=== PATIENT | female | born 1945 | race Caucasian/White ===

== ENCOUNTER 2020-06-06 06:38 | Emergency (ER) | payer MEDICARE, OTHER ==
[~2020-06-06] VITALS: Ht 157.5 cm; Wt 74.8 kg
[~2020-06-06 06:38] MED LIST: FAMO20 PO; K-Dur20 MEQ PO; LEVSOD50 PO; PANT40 PO; PRAV20; SYNTHROID25 MCG PO; TRAM50 PO; Zofran4 MG PO
[2020-06-06] MEDS ORDERED: Lisinopril10 MG (06:47)
[2020-06-06] MEDS ORDERED: OMEP20ER (06:48)
[2020-06-06 07:29] LABS: Source, Urine Voided
[2020-06-06 07:39] LABS: Appearance, Urine Clear (Clear); Bilirubin, Urine Neg (Neg); Blood, Urine 2+ (Neg); Color, Urine Yellow (P-Yellow); Glucose Qualitative, Urine Neg (Neg); Ketones, Urine Neg (Neg); Leukocyte Esterase, Urine 1+ (Neg); Nitrite, Urine Neg (Neg); Protein, Urine Neg (Neg); Urobilinogen, Urine NORM (Normal)
[2020-06-06 07:40] LABS: BASOPHILS ABSOLUTE AUTO 0.03 K/mm3 (0.00-0.23); BASOPHILS PERCENT AUTO 1 % (0-2); EOSINOPHILS ABSOLUTE AUTO 0.07 K/mm3 (0.00-0.68); EOSINOPHILS PERCENT AUTO 1 % (0-6); Hematocrit 27.4 % (33.0-51.0); Hemoglobin 8.1 g/dL (11.5-16.0); IMMATURE GRAN ABSOLUTE AUTO 0.01 K/mm3 (0.00-0.10); IMMATURE GRAN PERCENT AUTO 0 % (0-1); LYMPHOCYTES ABSOLUTE AUTO 1.47 K/mm3 (0.84-5.20); LYMPHOCYTES PERCENT AUTO 29 % (21-46); MONOCYTES ABSOLUTE AUTO 0.47 K/mm3 (0.16-1.47); MONOCYTES PERCENT AUTO 9 % (4-13); Mean Corpuscular HGB 20.6 pg (26.0-34.0); Mean Corpuscular HGB Conc 29.6 g/dL (31.5-36.5); Mean Corpuscular Volume 70 fL (80-100); Mean Platelet Volume 9.6 fL (9.1-12.4); NEUTROPHILS PERCENT AUTO 60 % (41-73); Platelet Count 374 K/mm3 (150-400); RDW Coefficient Variation 18.5 % (11.7-14.2); RDW Standard Deviation 46.1 fL (35.1-46.3); Red Blood Cell Count 3.93 M/mm3 (3.80-5.20); White Blood Cell Count 5.15 K/mm3 (4.00-11.30)
[2020-06-06 08:01] LABS: Albumin, Blood 3.6 g/dL (3.4-5.0); Albumin/Globulin Ratio 1.1 (0.8-1.8); Bilirubin, Total 0.6 mg/dL (0.1-1.0); Bun/Creatinine Ratio 12.7 (12.0-20.0); Calcium, Blood 8.5 mg/dL (8.5-10.1); Creatinine, Blood 1.02 mg/dL (0.40-1.00); Globulin, Blood 3.2 g/dL (2.2-4.0); Total Protein, Blood 6.8 g/dL (6.4-8.2)
[2020-06-06 08:07] LABS: Bacteria Few /hpf; Squamous Epithelial Cells Few /hpf (Few)
[2020-06-06] MEDS ORDERED: HYDR1TAB94 PO (09:15)
[2020-06-06] MEDS ORDERED: OMEPRAZOLE MAGN20 MG PO (09:15)
== END 2020-06-06 09:53 | disposition home or self-care (01) ==
LOC: ER 06:38
PROVIDERS: Emergency Medicine
DX: R10.9 Unspecified abdominal pain (principal); D64.9 Anemia, unspecified; Z79.899 Other long term (current) drug therapy
CPT/HCPCS: 74176; 80053; 81001; 85025; 87086; 96374; 96375; 99284-25; J1170; J2405; J7030

== ENCOUNTER → 2020-06-11 | Outpatient (CLI) | payer MEDICARE, OTHER ==
[~2020-06-11] MED LIST changes: +HYDR1TAB94 PO; +Lisinopril10 MG; +OMEP20ER; +OMEPRAZOLE MAGN20 MG PO
== END | disposition home or self-care (01) ==
LOC: LAB SHORT 11:00
DX: N20.0 Calculus of kidney (principal)
CPT/HCPCS: 87086

== ENCOUNTER → 2020-08-09 | Outpatient (CLI) | payer MEDICARE, OTHER | END | disposition home or self-care (01) | LOC: LAB SHORT 19:00 → LAB 19:00 | DX: R30.0 Dysuria (principal) | CPT/HCPCS: 87077; 87086; 87186 ==